=== PATIENT | male | born 1960 | race African-American/Black ===

== ENCOUNTER 2021-03-18 19:27 | Inpatient (IN) | payer BC, SELFPAY ==
[~2021-03-18] VITALS: Ht 175.3 cm; Wt 80.4 kg
[2021-03-18 19:27] VITALS: BP_SYST 162
[2021-03-18] MEDS ORDERED: NACL 0.9% 1,000 ML IV ONE ×2 (20:00→22:45)
[2021-03-18 20:55] LABS: BASOPHILS % (AUTO) 0.6 % (0.0-2.0); EOSINOPHILS % (AUTO) 0.6 % (0.0-4.0); HEMATOCRIT 36.9 % (36-54); LYMPHOCYTES # (AUTO) 0.6 K/uL (1.0-5.5); LYMPHOCYTES % (AUTO) 15.6 % (20.5-51.5); MEAN CORPUSCULAR HEMOGLOBIN 27 pg (27-31); MEAN CORPUSCULAR HGB CONC 33 % (32-36); MEAN CORPUSCULAR VOLUME 82 fL (79.0-98.0); MONOCYTES # (AUTO) 0.3 K/uL (0.0-1.0); MONOCYTES % (AUTO) 6.9 % (1.7-9.3); NEUTROPHILS % (AUTO) 76.3 % (40.0-70.0); PLATELET COUNT (AUTO) 170 K/uL (130-430); RED BLOOD CELL COUNT(AUTO) 4.52 MIL/uL (4.2-6.2); RED CELL DISTRIBUTION WIDTH 16.1 % (9.0-15.0); WHITE BLOOD COUNT (AUTO) 3.9 K/uL (4.8-10.8)
[2021-03-18 21:00] LABS: ANION GAP 8 (5-15); CALCIUM 8.8 mg/dL (8.4-11.0); CHLORIDE 106 mmol/L (98-107); CREATININE 1.21 mg/dL (0.55-1.30); GLUCOSE 126 mg/dL (70-99); POTASSIUM 3.5 mmol/L (3.5-5.1); SODIUM SERUM 141 mmol/L (136-145); UREA NITROGEN, BLOOD 15 mg/dL (8-21)
[2021-03-18] MEDS ORDERED: hydrALAZINE HCL 20 MG/ML VIAL IVP ONE (21:00)
[2021-03-18 21:03] LABS: GFR AFRICAN AMERICAN 78 mL/min (>90)
[2021-03-18 21:09] LABS: ALANINE AMINOTRANSFERASE 32 U/L (12-78); ASPARTATE AMINOTRANSFERASE 28 U/L (10-37); TOTAL BILIRUBIN 0.2 mg/dL (0.0-1.0)
[2021-03-18 22:30] LABS: BILIRUBIN,URINE NEGATIVE (NEGATIVE); BLOOD, URINE NEGATIVE (NEGATIVE); CLARITY/URINE CLEAR (CLEAR); COLOR,URINE YELLOW (YELLOW); GLUCOSE,URINE NEGATIVE (NEGATIVE); KETONES,URINE NEGATIVE (NEGATIVE); LEUKOCYTE ESTERASE ,URINE NEGATIVE (NEGATIVE); NITRITE, URINE NEGATIVE (NEGATIVE); PROTEIN URINE NEGATIVE (NEGATIVE); UROBILINOGEN,URINE 0.2 (0.2-1.0)
[2021-03-19] VITALS (8 sets, daily range): BP systolic 126–169
[2021-03-19] MEDS ORDERED: hydrALAZINE HCL 20 MG/ML VIAL IVP ONE (01:00)
[2021-03-19] MEDS ORDERED: cloNIDine HCL 0.1 MG TABLET PO ONE (01:30)
[2021-03-19] MEDS ORDERED: ACETAMINOPHEN 325 MG TABLET PO PRN (10:00)
[2021-03-19] MEDS ORDERED: HYDROcodone/ACETAMIN 10-325 MG TAB PO PRN (10:00)
[2021-03-19] MEDS ORDERED: lisinopriL 20 MG TABLET PO ONE (10:00)
[2021-03-19] MEDS ORDERED: HYDROCHLOROTHIAZIDE 25 MG TABLET (HCTZ) PO ONE (10:00)
[2021-03-19] MEDS ORDERED: amLODIPine BESYLATE 10 MG TABLET PO ONE (10:00)
[2021-03-19] MEDS ORDERED: HYDROcodone/ACETAMIN 5-325 MG TAB (NORCO/ VICODIN) PO PRN (10:00)
[2021-03-19] MEDS ORDERED: NALOXONE HCL 0.4 MG/ML AMP (NARCAN) IVP PRN ×2 (10:00)
[2021-03-19] MEDS ORDERED: ONDANSETRON HCL 4 MG/2 ML VIAL IVP PRN (10:00)
[2021-03-19] MEDS ORDERED: LORazepam 2 MG/ML VIAL IVP PRN (10:00)
[2021-03-19] MEDS ORDERED: LISI40TA13 PO (11:11)
[2021-03-19] MEDS ORDERED: CLON0.3T PO (11:11)
[2021-03-19] MEDS ORDERED: HYDR12.585 PO (11:11)
[2021-03-19] MEDS ORDERED: NOR10 PO (11:11)
[2021-03-19] MEDS ORDERED: NICOTINE 14 MG/24 HR PATCH.TD24 TD ONE (12:00)
[2021-03-19 13:50] LABS: FREE T4 (FREE THYROXINE) 1.2 ng/dl (0.8-1.5); THYROID STIMULATING HORMONE 0.62 uIu/mL (0.36-3.74)
[2021-03-19] MEDS: NORMAL SALINE 5 ML DISP.SYRIN IVF SCH ×4 (14:00→21:37)
[2021-03-19] MEDS ORDERED: FERR-69 PO (18:25)
[2021-03-19] MEDS ORDERED: METO25TA3 PO (18:25)
[2021-03-19] MEDS ORDERED: PRO40 PO (18:25)
[2021-03-19] MEDS ORDERED: ASPI-1393 PO (18:25)
[2021-03-19] MEDS: cloNIDine HCL 0.1 MG TABLET PO SCH (21:33)
[2021-03-20 00:26] VITALS: BP_SYST 132
[2021-03-20] MEDS: NORMAL SALINE 5 ML DISP.SYRIN IVF SCH ×3 (06:00→14:01)
[2021-03-20 06:51] LABS: BASOPHILS % (AUTO) 0.9 % (0.0-2.0); EOSINOPHILS % (AUTO) 0.9 % (0.0-4.0); HEMATOCRIT 34.7 % (36-54); HEMOGLOBIN 11.5 g/dL (14.0-18.0); LYMPHOCYTES # (AUTO) 0.7 K/uL (1.0-5.5); LYMPHOCYTES % (AUTO) 31.6 % (20.5-51.5); MEAN CORPUSCULAR HEMOGLOBIN 26 pg (27-31); MEAN CORPUSCULAR HGB CONC 33 % (32-36); MEAN CORPUSCULAR VOLUME 79 fL (79.0-98.0); MONOCYTES # (AUTO) 0.2 K/uL (0.0-1.0); MONOCYTES % (AUTO) 11.2 % (1.7-9.3); NEUTROPHILS # (AUTO) 1.1 K/uL (1.8-7.7); NEUTROPHILS % (AUTO) 55.4 % (40.0-70.0); PLATELET COUNT (AUTO) 152 K/uL (130-430); RED BLOOD CELL COUNT(AUTO) 4.39 MIL/uL (4.2-6.2); RED CELL DISTRIBUTION WIDTH 16.2 % (9.0-15.0); WHITE BLOOD COUNT (AUTO) 2.1 K/uL (4.8-10.8)
[2021-03-20 07:27] LABS: ALANINE AMINOTRANSFERASE 34 U/L (12-78); ALBUMIN 2.6 g/dL (3.4-4.8); ANION GAP 10 (5-15); ASPARTATE AMINOTRANSFERASE 32 U/L (10-37); CALCIUM 8.5 mg/dL (8.4-11.0); CHLORIDE 103 mmol/L (98-107); CREATININE 1.08 mg/dL (0.55-1.30); GLUCOSE 94 mg/dL (70-99); POTASSIUM 3.5 mmol/L (3.5-5.1); SODIUM SERUM 141 mmol/L (136-145); TOTAL BILIRUBIN 0.3 mg/dL (0.0-1.0); UREA NITROGEN, BLOOD 12 mg/dL (8-21)
[2021-03-20 08:46] LABS: GFR AFRICAN AMERICAN 89 mL/min (>90)
[2021-03-20 08:50] VITALS: BP_SYST 123
[2021-03-20] MEDS ORDERED: HYDROCHLOROTHIAZIDE 25 MG TABLET (HCTZ) PO SCH (09:00)
[2021-03-20] MEDS ORDERED: NICOTINE 14 MG/24 HR PATCH.TD24 TD SCH (09:00)
[2021-03-20] MEDS ORDERED: lisinopriL 20 MG TABLET PO SCH (09:00)
[2021-03-20] MEDS ORDERED: amLODIPine BESYLATE 10 MG TABLET PO SCH (09:00)
[2021-03-20] MEDS: cloNIDine HCL 0.1 MG TABLET PO SCH (09:07)
[2021-03-20 11:25] VITALS: BP_SYST 120
[2021-03-20 14:15] VITALS: BP_SYST 120
[2021-03-20 15:14] VITALS: BP_SYST 90
== END 2021-03-20 15:35 | disposition home or self-care (01) | DRG 305 ==
LOC: SED 19:27 → STU 03-19 01:12
PROVIDERS: ADMIT Preventive Medicine Preventive Medicine/Occupational Environmental Medicine; ATTEND Preventive Medicine Preventive Medicine/Occupational Environmental Medicine
DX: I16.0 Hypertensive urgency (principal); C16.9 Malignant neoplasm of stomach, unspecified; R55 Syncope and collapse; I10 Essential (primary) hypertension; D72.819 Decreased white blood cell count, unspecified; F17.210 Nicotine dependence, cigarettes, uncomplicated; R73.9 Hyperglycemia, unspecified; D64.9 Anemia, unspecified; Z20.822 Contact with and (suspected) exposure to COVID-19; E88.09 Other disorders of plasma-protein metabolism, not elsewhere classified; Z79.899 Other long term (current) drug therapy
CPT/HCPCS: 36415; 71045; 80053; 81003; 83735; 83880; 84439; 84443; 84484; 85025; 93005; 93306; 93880; 96361; 96374; 99285; G0378; J0360

== ENCOUNTER 2021-05-04 09:03 | Emergency (ER) | payer BC, SELFPAY ==
[~2021-05-04] VITALS: Ht 175.3 cm; Wt 81.6 kg
[~2021-05-04 09:03] MED LIST: ASPI-1393 PO; CLON0.3T PO; FERR-69 PO; HYDR12.585 PO; LISI40TA13 PO; METO25TA3 PO; NOR10 PO; PRO40 PO
[2021-05-04 09:05] VITALS: BP_SYST 155
--- NOTE | 2021-05-04 09:05 | NUR ---
BROUGHT BACK TO BED #6 VIA WHEELCHAIR, TRIAGED AND REPORT GIVEN TO SANTIAGO
--- NOTE | 2021-05-04 09:08 | NUR ---
Pt came into ER with complaint of lower abdominal pain 10/10 and vomitting Xtoday. Pt is AAOX4 speaking full sentences with guarding abdomnial pain. Pt reports it is a burning sensation. VSS pt in [facility] attached to monitor.
--- NOTE | 2021-05-04 09:10 | NUR ---
DR CORTEZ AT BEDSIDE FOR EVALUATION
[2021-05-04] MEDS ORDERED: ONDANSETRON HCL 4 MG/2 ML VIAL IVP ONE (09:30)
[2021-05-04] MEDS ORDERED: MORPHINE 4 MG INJ. 4 MG/ML VIAL IVP ONE (09:30)
--- NOTE | 2021-05-04 10:12 | NUR ---
Pt has Portacath on left upper chest. Accessed with 19 gauge rothman needle using sterile technique. Pt tolerated well. Dressed with opsite and tape with sterile technique. Blood return noted and flushed with 10cc of sterile saline.
--- NOTE | 2021-05-04 10:13 | NUR ---
Lab at bedside.
--- NOTE | 2021-05-04 10:16 | NUR ---
Patient transported to radiology via wheelchair, accompanied by tech.
[2021-05-04 10:20] LABS: BASOPHILS % (AUTO) 0.2 % (0.0-2.0); EOSINOPHILS % (AUTO) 0.2 % (0.0-4.0); HEMATOCRIT 40.6 % (36-54); HEMOGLOBIN 13.3 g/dL (14.0-18.0); LYMPHOCYTES # (AUTO) 0.4 K/uL (1.0-5.5); LYMPHOCYTES % (AUTO) 7.3 % (20.5-51.5); MEAN CORPUSCULAR HEMOGLOBIN 26 pg (27-31); MEAN CORPUSCULAR HGB CONC 33 % (32-36); MEAN CORPUSCULAR VOLUME 79 fL (79.0-98.0); MONOCYTES # (AUTO) 0.3 K/uL (0.0-1.0); MONOCYTES % (AUTO) 5.6 % (1.7-9.3); NEUTROPHILS % (AUTO) 86.7 % (40.0-70.0); PLATELET COUNT (AUTO) 135 K/uL (130-430); RED BLOOD CELL COUNT(AUTO) 5.14 MIL/uL (4.2-6.2); RED CELL DISTRIBUTION WIDTH 16.5 % (9.0-15.0); WHITE BLOOD COUNT (AUTO) 5.7 K/uL (4.8-10.8)
--- NOTE | 2021-05-04 10:30 | NUR ---
Pt back from CT.
[2021-05-04 10:36] LABS: ANION GAP 7 (5-15); CALCIUM 9.1 mg/dL (8.4-11.0); CHLORIDE 101 mmol/L (98-107); CREATININE 1.62 mg/dL (0.55-1.30); GLUCOSE 158 mg/dL (70-99); POTASSIUM 3.4 mmol/L (3.5-5.1); SODIUM SERUM 138 mmol/L (136-145); UREA NITROGEN, BLOOD 26 mg/dL (8-21)
[2021-05-04 10:39] LABS: GFR AFRICAN AMERICAN 56 mL/min (>90)
[2021-05-04 10:42] LABS: ALANINE AMINOTRANSFERASE 42 U/L (12-78); ALBUMIN 3.8 g/dL (3.4-4.8); ASPARTATE AMINOTRANSFERASE 24 U/L (10-37); LIPASE 21 U/L (73-393); TOTAL BILIRUBIN 0.4 mg/dL (0.0-1.0)
--- NOTE | 2021-05-04 11:13 | NUR ---
at bedside speaking with pt.
--- NOTE | 2021-05-04 12:50 | NUR ---
Pt resting in [facility] VSS no distress noted. Pt states he feels better and can tolerate PO fluids.
[2021-05-04] MEDS ORDERED: DOCU-144 PO (13:03)
[2021-05-04] MEDS ORDERED: POLY17PO4 PO (13:03)
[2021-05-04 13:25] VITALS: BP_SYST 141
--- NOTE | 2021-05-04 13:25 | NUR ---
Patient given written and verbal discharge instructions and verbalizes understanding. ER MD discussed with patient the results and treatment provided. Patient in stable condition. ID arm band removed. IV catheter removed intact and dressing applied, no active bleeding. Rx of miralax and colace given. Patient educated on pain management and to follow up with PMD. Pain Scale 0/10. Opportunity for questions provided and answered. Medication side effect fact sheet provided.
== END 2021-05-04 13:25 | disposition home or self-care (01) ==
LOC: SED 09:03
DX: N17.9 Acute kidney failure, unspecified (principal); K59.00 Constipation, unspecified; I10 Essential (primary) hypertension; Z79.899 Other long term (current) drug therapy
CPT/HCPCS: 36415; 74176; 76376; 80053; 83690; 84484; 85025; 86886; 86900; 86901; 93005; 96374; 96375; 99285; J2270; J2405; Q9967